=== PATIENT | male | born 1955 | race Two or more races ===

== ENCOUNTER 2025-03-02 15:03 | Emergency (ER) | payer OTHER, SELFPAY ==
--- NOTE | ~2025-03-02 | CT_ITS ---
EXAMINATION: CT HEAD WITHOUT CONTRAST CLINICAL INFORMATION: Altered status COMPARISON: None available. TECHNIQUE: Contiguous axial imaging was performed from the skull base to vertex without intravenous administration of contrast. This CT examination was performed using dose optimization techniques as appropriate, variously including the following: *Automated exposure control *Adjustment of mA and/or kV according to patient size (this includes techniques or standardized protocols for targeted exams where dose is matched to indication/reason for exam; i.e. extremities or head) *Use of iterative reconstruction technique DLP: 653 mGY*cm FINDINGS: There is no acute ischemic change. There is no intracranial hemorrhage. There is no mass-effect or midline shift. There is [id number]-md-[id number] generalized atrophy. There are periventricular hypodensities. Basal cisterns and ventricles are within normal limits for age/cerebral volume. Orbits are symmetrical and unremarkable. Paranasal sinuses and mastoid air cells are pneumatized. There are no bony abnormalities. CT/CT head/brain wo IV con IMPRESSION: No acute intracranial abnormality. Generalized atrophy and chronic small vessel ischemic changes. Electronically signed by: Fredi Kim MD 03/02/2025 05:00 PM EDT
--- NOTE | ~2025-03-02 | MR_ITS ---
CLINICAL HISTORY: ? TIA MR Angiography head without gadolinium Comparison: MR - MR HEAD/BRAIN WO CON - 03/02/25 17:[address]/SR - CT HEAD/BRAIN WO IV CON - 03/02/25 16:43 EDT Findings Widely patent intracranial internal carotid arteries. Incidental note of normal variants: hypoplastic left A1 segment and origin of the left G[employer]. Vertebrobasilar system intact. Cerebral arteries are patent. Unremarkable cerebellar arteries. IMPRESSION: No evidence of large vessel occlusion. This document has been electronically signed by: Dong Douglass MD on 03/02/2025 19:41:11
--- NOTE | ~2025-03-02 | MR_ITS ---
CLINICAL HISTORY: Right-sided clumsiness MR Brain without gadolinium Comparison: None provided Findings: No restricted diffusion. No intra-axial mass or hemorrhage. There is a tiny lacunar infarct in the periventricular white matter of the right frontal lobe. Small old lacunar infarct or prominent perivascular space in the left basal ganglia. T2 and FLAIR hyperintensity in the periventricular white matter suggesting chronic small-vessel ischemic gliosis. Mild cerebral atrophy. No midline shift. No hydrocephalus. Vascular flow voids are intact. Orbital contents are unremarkable. The sinuses and mastoid air cells are clear. No focal bone lesion. IMPRESSION: 1. No evidence of acute infarct. 2. Chronic small-vessel ischemic gliosis in the periventricular white matter. Old small lacunar infarcts in the white matter. This document has been electronically signed by: Dong Douglass MD on 03/02/2025 19:34:46
[2025-03-02 15:11] VITALS: BP 216/88; PULSE 65; RESP 18; TEMP 36.5; O2SAT 97; BMI 27.7
[2025-03-02 15:19] VITALS: BP 202/82; PULSE 65; RESP 12; O2SAT 94
--- NOTE | 2025-03-02 15:39 | ECG_ITS ---
Test Reason : CP Blood Pressure : */* mmHG Vent. Rate : 63 BPM Atrial Rate : 63 BPM P-R Int : 152 ms QRS Dur : 94 ms QT Int : 400 ms P-R-T Axes : 62 6 56 degrees QTcB Int : 409 ms Normal sinus rhythm Normal ECG No previous ECGs available Referred By: Natalee Abebe Electronically Signed By: SPEEDY SNYDER MD
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
[2025-03-02 15:58] LABS: MANUAL DIFF FLAG NO
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
[2025-03-02 16:14] LABS: Hematocrit 38.7 % (42.0-52.0); Hemoglobin 12.8 g/dl (14.0-18.0); Imm Gran Abs Auto 0.06 X10*3/uL (0.00-0.03); Imm Gran Pct Auto 1.0 % (0.0-0.4); Lymphocytes Absolute Auto 1.1 X10*3/uL (1.2-4.9); Mean Corpuscular HGB Conc 33.1 g/dl (31.0-36.0); Mean Corpuscular Hemoglobin 28.7 pg (27.0-33.0); Mean Corpuscular Volume 86.8 fL (80.0-98.0); NRBC Abs Auto 0.000 X10*3/uL (0.0-0.012); NRBC Pct Auto 0.0 /100WBC (0.0-0.2); Platelet Count 122 X10*3/uL (160-400); Red Blood Count 4.46 X10*6/uL (4.60-5.80); White Blood Count 5.8 X10*3/uL (4.8-10.8)
[2025-03-02 16:15] LABS: Alanine Aminotransferase 23 U/L (0-40); Albumin Level 3.7 g/dL (3.5-5.0); Alkaline Phosphatase 91 U/L (39-117); Anion Gap 12 (12-20); Aspartate Amino Transferase 25 U/L (5-37); Blood Urea Nitrogen 48 mg/dL (9-16); Calcium 8.6 mg/dL (8.4-10.2); Carbon Dioxide 24 mmol/L (22-29); Chloride 106 mmol/L (96-108); Creatinine Clr Calc Pharmacy 34.9; Estimated Glomerular Filt Rate 32; Potassium 4.3 mmol/L (3.3-5.1); Sodium 138 mmol/L (135-145); Total Protein 6.3 g/dL (6.5-8.0)
[2025-03-02 16:17] VITALS: BP 187/83; PULSE 60; RESP 16; TEMP 36.6; O2SAT 97
[2025-03-02 16:22] LABS: Troponin-I High Sensitivity 16.3 ng/L (<3.5-35.0)
--- NOTE | 2025-03-02 17:04 | PC.NURSE ---
MRI form complete and faxed to MRI.
--- OUTSIDE RECORDS SUMMARY | 2025-03-02 19:04 | XMS_ITS ---
Author Name [facility] Organization Unknown Results Test Name/Text Value Interpretation Date Range Source POINT OF CARE GLUCOSE 138.0 mg/dL Normal 06/24/2024 [facility] POINT OF CARE GLUCOSE 140.0 mg/dL Normal 06/24/2024 [facility] POINT OF CARE GLUCOSE 154.0 mg/dL Normal 06/10/2024 [facility] History of Medication Use Medication Directions Dispensed Refills Start Date End Date Stat valsartan 160 mg tablet Take 1 tablet every day by oral route. 08/03/2023 02/13/2024 completed pregabalin (LYRICA) 50 MG capsule 12/26/2022 active spironolactone 25 mg tablet take one tablet daily 11/01/2022 12/03/2022 completed aspirin 81 MG chewable tablet Chew 1 tablet (81 mg total) daily. 09/09/2022 12/09/2022 active carvedilol (COREG) 6.25 MG tablet Take 1 tablet (6.25 mg total) by mouth 2 (two) times a day with meals. 09/09/2022 active spironolactone (ALDACTONE) 25 MG tablet Take 1 tablet (25 mg total) by mouth every morning with breakfast. 09/09/2022 active lisinopril 10 mg tablet 11/08/2020 09/09/2022 completed ergocalciferol (VITAMIN D2,DRISDOL) 65172 units Cap 11/02/2020 active glimepiride 2 mg tablet 09/25/2020 09/09/2022 completed furosemide 20 mg tablet Take 1 tablet as needed by oral route. 12/24/2022 completed clopidogrel 75 mg tablet TAKE ONE TABLET BY MOUTH EVERY DAY active linagliptin 5 mg tablet Take 1 tablet every day by oral route. active Problems Problem Status Onset Date Problem Type Date of Resolution Source Chronic kidney disease stage 3 active 2022-12-[address] [facility] [facility] Hypertensive disorder active 2022-10-25 [facility] Type 2 diabetes mellitus active 2022-09-06 ProblemAct [facility] Left bundle branch block active 2022-10-25 [facility] Cardiomyopathy active 2022-10-[address] [facility] [facility] Coronary arteriosclerosis active 2022-10-[address] [facility] [facility] HTN (hypertension), benign active 2022-09-06 ProblemAct [facility] Acute congestive heart failure, unspecified heart failure type active 2022-09-06 ProblemAct [facility] Multiple vessel coronary artery disease active [facility]osis[facility] Encounters Encounter Type Encounter Reason Primary Diagnosis Location Date [facility] 02/21/2025 [facility] 02/18/2025 [facility] 02/18/2025 [facility] 02/15/2025 Ambulatory CATARACT LEFT EYE [facility] LEFT EYE [facility] 06/24/2024 Ambulatory CATARACT RIGHT EYE CATARACT RIGHT EYE [facility] 06/10/2024 [facility] 02/13/2024 [facility] 02/13/2024 Emergency HIGH BLOOD PRESSURE AFTER MEDS STILL WILL NOT LOWE HIGH BLOOD PRESSURE AFTER MEDS STILL WILL NOT LOWE [facility] 08/02/2023 Ambulatory Heart failure, unspecified [place] [facility] 01/01/2023 Ambulatory [facility] 12/31/2022 Emergency LAB WORK LAB WORK [facility] 10/25/2022 Inpatient Dyspnea, unspecified [facility] 09/05/2022 Care Team Organization Name Specialty Phone Email Start Date End [facility] 02/18/2025 [facility] 02/14/2024 [facility] 09/21/2023 [facility] 07/04/2023 024 [facility] 07/04/2023 024 [facility] 05/24/2023 024 [facility] 10/26/2022 [facility] 10/25/2022 10/25/19 [facility]/2022 [facility] 09/05/2022 09/06/2022
[2025-03-02 19:32] VITALS: BP 202/78; PULSE 63; RESP 16; TEMP 36.6; O2SAT 98
[2025-03-02 20:21] VITALS: BP 202/78; PULSE 63; RESP 16; TEMP 36.6; O2SAT 98
== END 2025-03-02 20:22 | disposition home or self-care (01) ==
PROVIDERS: Emergency Medicine Emergency Medical Services; Emergency Provider Internal Medicine
DX: G45.9 Transient cerebral ischemic attack, unspecified (principal); R29.700 NIHSS score 0; E11.9 Type 2 diabetes mellitus without complications; I10 Essential (primary) hypertension; E78.5 Hyperlipidemia, unspecified
CPT/HCPCS: 36415; 70450; 70544; 70551; 80048; 80076; 84484; 85025; 93005; 99285

== ENCOUNTER → 2025-03-02 15:39 | Outpatient (BNV) | payer OTHER, SELFPAY | PROVIDERS: Emergency Provider Internal Medicine; Visit Provider Internal Medicine Cardiovascular Disease | DX: R07.9 Chest pain, unspecified (principal) | CPT/HCPCS: 93010 ==

== ENCOUNTER → 2025-03-02 16:41 | Outpatient (BNV) | payer SELFPAY | PROVIDERS: Emergency Provider Internal Medicine; Visit Provider Radiology Diagnostic Radiology | DX: R90.82 White matter disease, unspecified (principal); R41.82 Altered mental status, unspecified | CPT/HCPCS: 70450; 70544; 70551 ==